=== PATIENT | female | born 1960 | race African-American/Black ===

== ENCOUNTER → 2017-03-19 | Day surgery (SDC) | payer BC ==
[~2017-03-19] MED LIST: HYDROmorphone 2 MG/ML VIAL IV PRN; IV RINGERS,LACTATED 1000ML 1,000 ML IV SCH; LIDOCAINE 1% 1 ML SYRINGE. ID PRN; LIDOCAINE 2% PF Vial for OR 5 ML VIAL. ONE; MIDAZOLAM HCL/PF 2 MG/2 ML VIAL. IV PRN; MORPHINE SULFATE 2 MG/ML DISP.SYRIN. IV PRN; NAPR220C4 PO; ONDANSETRON PF 4 MG/2 ML VIAL. IV PRN; PROCHLORPERAZINE 10 MG/2 ML VIAL. IV PRN; PROPOFOL 20 ML IV ONE; fentaNYL PF VIAL 100 MCG/2 ML VIAL IV PRN
[2017-03-19 08:53] VITALS: BP 167/84
--- NOTE | 2017-03-20 00:10 | CONS ---
DATE OF CONSULTATION: 03/19/2017 REFERRING PHYSICIAN: Dilcia Humphrey MD REASON FOR REFERRAL: colorectal screening. HISTORY OF PRESENT ILLNESS: This is a 56-year-old female whose past medical history is significant for osteoarthrosis, seen for screening colon exam. Bowel habits are regular without diarrhea or constipation. There has been no melena and/or hematochezia. Weight and appetite are stable and she is otherwise without additional complaints. PAST MEDICAL HISTORY: Breast surgery, osteoarthrosis. SOCIAL HISTORY: She is a former smoker, social drinker. REVIEW OF SYSTEMS: Per records. PHYSICAL EXAMINATION: GENERAL: Reveals a well-nourished, well-developed female who is alert, and cooperative, in no acute distress. VITAL SIGNS: Temperature is 98.5, pulse 69, respirations 20. HEENT: Reveals normocephalic and atraumatic head. Pupils and extraocular muscles not tested. Sclerae anicteric. NECK: Supple. LUNGS: Clear. CARDIOVASCULAR: Reveals an S1, S2 without S3, S4 or appreciable murmur. ABDOMEN: Soft abdomen, normal bowel sounds, without appreciable hepatosplenomegaly. EXTREMITIES: Reveals no cyanosis, clubbing or edema. IMPRESSION: Colorectal screening is warranted at this time. Risks and benefits of procedure including risk of perforation were discussed with the patient's ____ proceed at this time. ADRIAN ALEX MD DR: TANK/rommel JOB#: [id number] / [id number]
--- NOTE | 2017-03-22 15:32 | PATHOLOGY ---
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 COMMENT: There is no evidence of malignancy. (AMBERM:; d/t: 03/22/17) REPORT ELECTRONICALLY SIGNED BY: Jose Rodriguez M.D. DATE/TIME: 03/22/2017 15:32 * * * * * * * * GROSS PATHOLOGY: Received in formalin labeled "Mariajose Lopez, rectal polyp," is a segment of west soft tissue measuring 0.5 cm in maximum dimension. The specimen is submitted entirely in cassette A1. (KAH; 03/19/2017) INITIAL CPT CODE(S): A; 16652 Professional services performed [place] [facility] [address] Technical services performed by [facility] at [address] [place] [address] [address] [place] [address]. SPECIMEN(S) RECEIVED: A.Rectal polyp CLINICAL HISTORY: Screening PATIENT: MARIAJOSE LOPEZ /AGE: 604/11/1960 (Age: 56) PATIENT #: [id number] ALT CASE #: SPECIMEN COLLECTION DATE: 03/19/2017 SPECIMEN RECEIVED DATE: 03/19/2017 [facility] - [address] [place] [address] - PHONE: [phone] * * * END OF REPORT * * *
== END | disposition home or self-care (01) ==
LOC: ENDOS 07:03
PROVIDERS: ATTEND Internal Medicine Gastroenterology
DX: Z12.11 Encounter for screening for malignant neoplasm of colon (principal); K62.0 Anal polyp; K64.1 Second degree hemorrhoids; K57.30 Diverticulosis of large intestine without perforation or abscess without bleeding
CPT/HCPCS: 45385; 88305; J2704

== ENCOUNTER → 2018-04-01 | Outpatient (CLI) | payer BC ==
[2018-04-01] MEDS: IOHEXOL 300 MG/ML 100ML VIAL. IV (11:46)
[2018-04-01] MEDS: IOHEXOL 240 MG/ML 50ML VIAL. PO (11:46)
== END | disposition home or self-care (01) ==
LOC: CT 10:17
DX: C85.90 Non-Hodgkin lymphoma, unspecified, unspecified site (principal); J84.10 Pulmonary fibrosis, unspecified; M47.892 Other spondylosis, cervical region; R91.1 Solitary pulmonary nodule
CPT/HCPCS: 70491; 71260; 74177; Q9966; Q9967

== ENCOUNTER → 2019-04-11 | Outpatient (CLI) | payer BC ==
[2017-09-02 18:07] VITALS: BP 164/86
[~2019-04-11] MED LIST changes: -HYDROmorphone 2 MG/ML VIAL IV PRN; +IOHEXOL 240 MG/ML 50ML VIAL. PO ONE; +IOHEXOL 300 MG/ML 100ML VIAL. IV ONE; -IV RINGERS,LACTATED 1000ML 1,000 ML IV SCH; -LIDOCAINE 1% 1 ML SYRINGE. ID PRN; -LIDOCAINE 2% PF Vial for OR 5 ML VIAL. ONE; -MIDAZOLAM HCL/PF 2 MG/2 ML VIAL. IV PRN; -MORPHINE SULFATE 2 MG/ML DISP.SYRIN. IV PRN; -ONDANSETRON PF 4 MG/2 ML VIAL. IV PRN; -PROCHLORPERAZINE 10 MG/2 ML VIAL. IV PRN; -PROPOFOL 20 ML IV ONE; +TRAM50TA PO; -fentaNYL PF VIAL 100 MCG/2 ML VIAL IV PRN
--- NOTE | 2019-04-11 14:59 | RAD ---
EXAM: CT Chest, Abdomen and Pelvis with IV contrast CLINICAL HISTORY: Peripheral T-cell lymphoma, left lung nodule, follow-up examination. COMPARISON: 04/20/2018, 11/14/2015 TECHNIQUE: Helical CT of the chest, abdomen and pelvis was performed following the administration of intravenous contrast. Axial, coronal and sagittal reformatted images were generated. ---PQRS compliance statement - One or more of the following individualized dose reduction techniques were utilized for this study: 1. Automated exposure control 2. Adjustment of the mA and/or kV according to patient size 3. Use of iterative reconstruction technique--- FINDINGS: Chest: Heart is mildly enlarged. No pericardial effusion. No axillary lymphadenopathy. No mediastinal or hilar lymphadenopathy. No pleural effusion or pneumothorax. Central airways are grossly patent. 3 mm fissural lung nodule (series 2 image 26) is stable. Bilateral calcified granulomas are again seen. Linear lung base and lower lobe opacities likely scarring/atelectasis. Abdomen and Pelvis: Low-attenuation subcentimeter hepatic lesions are too small to characterize, but stable. Gallbladder is normal. No biliary ductal dilatation. Pancreas is unremarkable. Spleen is normal in appearance. Adrenal glands are unremarkable. Symmetric nephrograms. No focal renal lesion. No hydronephrosis. No hydroureter. Bladder is unremarkable. Appendix is normal. Moderate colonic stool content is seen. No small or large bowel dilatation is seen. No evidence of bowel obstruction. No abdominal or pelvic lymphadenopathy by size criteria. No abdominal pelvic ascites. Bones: Multilevel degenerative changes of spine are seen. Solid fusion L5-S1. IMPRESSION: 1. No thoracic, abdominal or pelvic lymphadenopathy. 2. Hypodense hepatic lesions are too small to accurately characterize, unchanged. 3. No suspicious lung nodule or mass is seen. Electronically signed by: Kimo Arnett MD (04/11/2019 2:56 PM) [id number]
== END | disposition home or self-care (01) ==
LOC: CT 08:09
PROVIDERS: ATTEND Internal Medicine Hematology & Oncology
DX: C84.49 Peripheral T-cell lymphoma, not elsewhere classified, extranodal and solid organ sites (principal); R91.1 Solitary pulmonary nodule; K76.9 Liver disease, unspecified; I51.7 Cardiomegaly; J84.10 Pulmonary fibrosis, unspecified
CPT/HCPCS: 71260; 74177; Q9966; Q9967

== ENCOUNTER → 2020-02-13 | Outpatient (CLI) | payer BC ==
[2017-09-02 18:07] VITALS: BP 164/86
[~2020-02-13] MED LIST changes: -IOHEXOL 240 MG/ML 50ML VIAL. PO ONE; -IOHEXOL 300 MG/ML 100ML VIAL. IV ONE
--- NOTE | 2020-02-13 12:01 | KCIC ---
Ultrasound of the soft tissues posterior to the left ear 02/13/2020 CLINICAL HISTORY: Palpable nodules posterior to the left ear. History of lymphoma. TECHNIQUE: A real-time ultrasound examination of the soft tissues posterior to the left ear in the area of the patient's palpable abnormality was performed. Multiple images were obtained. FINDINGS: Three lymph nodes are seen within the subcutaneous fat of the soft tissues posterior to the left ear. These measure 8 mm to 1.1 cm in size. These lymph nodes have a normal fatty hilum. They demonstrate increased color flow, centrally. They are consistent with a reactive adenitis. IMPRESSION: Three prominent lymph nodes are seen within the soft tissues posterior to the left ear consistent with a reactive adenitis. Electronically signed by: Agustin Barajas MD (02/13/2020 11:58 AM) [id number]
== END ==
LOC: KCIC US 10:47
PROVIDERS: ATTEND Registered Nurse Neuroscience
DX: H93.8X2 Other specified disorders of left ear (principal); Z85.72 Personal history of non-Hodgkin lymphomas
CPT/HCPCS: 76536

== ENCOUNTER → 2020-04-02 | Outpatient (CLI) | payer BC ==
[2017-09-02 18:07] VITALS: BP 164/86
[~2020-04-02] MED LIST changes: +CONTRAST GIVEN. MC PRN; +IOHEXOL 240 MG/ML 50ML VIAL. PO ONE; +IOHEXOL 300 MG/ML 100ML VIAL. IV ONE
--- NOTE | 2020-04-02 13:19 | RAD ---
EXAM: CT Neck, Chest, Abdomen, and Pelvis with IV contrast INDICATION: Reason: LYMPHOMA, NODULE OF LEFT LUNG / Spl. Instructions: IV OMNI 300 75 MLS AND PO OMNI 240 50 MLS TECHNIQUE: Multiple contiguous axial images were obtained of the neck, chest, abdomen, and pelvis with the use of IV contrast. Post-processing reconstructed images were obtained for interpretation. All CT scans performed at this facility utilize dose optimization techniques as appropriate to the exam, including the following: Automated exposure control and adjustment of the mA and/or KV according to patient size (this includes techniques or standardized protocols for targeted exams where dose is indication/reason for exam). IV CONTRAST: Administered ORAL CONTRAST: Administered COMPARISON: CT angiogram chest of 04/11/2019, CT abdomen and pelvis with IV contrast 04/11/2019, CT chest abdomen of 04/01/2018. FINDINGS: NECK: INTRACRANIAL STRUCTURES & ORBITS: Unremarkable. AERODIGESTIVE: The nasal cavity, nasopharynx, oral cavity, oropharynx, hypopharynx, larynx, and visualized trachea and esophagus demonstrate no masses or abnormal enhancement. CERVICAL LYMPH NODES & SOFT TISSUES: Mild prominence of asymmetrically enlarged left greater than right bilateral levels 1 and 2 cervical nodes measuring up to 9 mm in long axis (image 50 of series 2). Persistent asymmetrically prominent left retroauricular lymph nodes measuring up to 10 mm in long axis. Bilateral level 3 cervical nodes are also involved , measuring 9 mm long axis on the right (image 37 of series 2) and 9 mm on the left (image 44 of series 2) THYROID & SALIVARY GLANDS: Unremarkable. OSSEOUS: Multilevel cervical degenerative spondylosis. Normal alignment. No fracture or aggressive appearing osseous lesions. CHEST: CARDIOVASCULAR: Unremarkable MEDIASTINUM & SIMBA: Calcified mediastinal lymph nodes but no adenopathy or masses. LUNGS: No pulmonary infiltrate, nodule, or other focal abnormality. Calcified granuloma in the peripheral superior segment left lower lobe, measuring 4 mm. PLEURAL SPACE: No pleural effusions or pneumothorax. OSSEOUS & SOFT TISSUE: Unremarkable ABDOMEN/PELVIS: LIVER: Stable hypodense subcentimeter lesions too small to characterize but statistically likely to be cysts. BILIARY SYSTEM: Gallbladder is unremarkable. Bile ducts are not dilated. PANCREAS: Unremarkable SPLEEN: Unremarkable ADRENALS: Unremarkable KIDNEYS & URETERS: Unremarkable BLADDER: Unremarkable REPRODUCTIVE ORGANS: Unremarkable GASTROINTESTINAL: The stomach, small bowel, and colon are unremarkable. The appendix is normal. MESENTERY/PERITONEUM/RETROPERITONEUM: Unremarkable VASCULAR: Unremarkable LYMPH NODES: No adenopathy OSSEOUS & SOFT TISSUES: Unremarkable IMPRESSION: Residual mildly asymmetrically prominent left greater than right cervical lymph nodes from the retroauricular louise station down to level 3. No bulky adenopathy. No suppurative or necrotic adenopathy and no evidence of extranodal disease. Otherwise unremarkable CT of the neck, chest, abdomen, and pelvis. Electronically signed by: Dina Oneill MD (04/02/2020 1:15 PM) [id number]
== END | disposition home or self-care (01) ==
LOC: CT 09:51
PROVIDERS: ATTEND Internal Medicine Hematology & Oncology
DX: C84.49 Peripheral T-cell lymphoma, not elsewhere classified, extranodal and solid organ sites (principal); M47.892 Other spondylosis, cervical region; R91.1 Solitary pulmonary nodule
CPT/HCPCS: 70491; 71260; 74177; Q9966; Q9967